=== PATIENT | female | born 1965 | race Caucasian/White ===

== ENCOUNTER → 2018-08-31 | Outpatient (CLI) | payer OTHER ==
[~2018-08-31] MED LIST: IBUP400
[2018-09-02 15:07] LABS: HPV 16 Negative (Negative); HPV 18 Negative (Negative); HPV OTHER HR TYPES Negative (Negative)
== END | disposition home or self-care (01) ==
LOC: LAB SHORT 18:20 → LAB 18:20
PROVIDERS: Nurse Practitioner Women's Health
DX: Z12.4 Encounter for screening for malignant neoplasm of cervix (principal); Z91.89 Other specified personal risk factors, not elsewhere classified
CPT/HCPCS: 87624; G0123

== ENCOUNTER → 2019-02-17 | Outpatient (CLI) | payer OTHER | END | disposition home or self-care (01) | LOC: PLD 07:13 → LAB SHORT 07:13 | DX: N95.0 Postmenopausal bleeding (principal) | CPT/HCPCS: 88305 ==

== ENCOUNTER → 2020-06-25 | Outpatient (CLI) | payer OTHER | END | disposition home or self-care (01) | LOC: LAB SHORT 10:31 → PLD 10:31 | DX: D22.5 Melanocytic nevi of trunk (principal); D22.71 Melanocytic nevi of right lower limb, including hip; D22.61 Melanocytic nevi of right upper limb, including shoulder | CPT/HCPCS: 88305 ==

== ENCOUNTER → 2021-12-17 | Outpatient (CLI) | payer OTHER | END | disposition home or self-care (01) | LOC: LAB SHORT 12:09 | DX: D22.61 Melanocytic nevi of right upper limb, including shoulder (principal); D22.5 Melanocytic nevi of trunk; D22.62 Melanocytic nevi of left upper limb, including shoulder | CPT/HCPCS: 88305 ==